=== PATIENT | male | born 1955 | race Caucasian/White ===

== ENCOUNTER 2018-10-01 14:42 | Emergency (ER) | payer BC ==
[~2018-10-01] VITALS: Ht 177.8 cm; Wt 68.2 kg
[2018-10-01 14:45] VITALS: Ht 177.8 cm; Wt 68.2 kg
[2018-10-01] MEDS ORDERED: ACID REFLUX MED (14:47)
[2018-10-01] MEDS ORDERED: BP MED (14:47)
[2018-10-01 16:34] VITALS: BP 136/72
== END 2018-10-01 16:35 | disposition home or self-care (01) ==
LOC: D.ER 14:42
DX: S16.1XXA Strain of muscle, fascia and tendon at neck level, initial encounter (principal); W18.30XA Fall on same level, unspecified, initial encounter; Y93.89 Activity, other specified; Y92.89 Other specified places as the place of occurrence of the external cause; S09.90XA Unspecified injury of head, initial encounter; S06.0X9A Concussion with loss of consciousness of unspecified duration, initial encounter

== ENCOUNTER 2019-08-31 01:25 | Emergency (ER) | payer BC ==
[~2019-08-31] VITALS: Ht 177.8 cm; Wt 68.0 kg
[~2019-08-31 01:25] MED LIST: ACID REFLUX MED; BP MED
[2019-08-31 01:31] VITALS: BP 160/105; Ht 177.8 cm; Wt 68.0 kg
[2019-08-31] MEDS ORDERED: FLOMAX0.4 MG PO (01:33)
[2019-08-31 01:52] LABS: BASOPHILS 0.6 % (0-2); EOSINOPHILS 0.9 % (0-7); HEMATOCRIT 46.8 % (42.0-54.0); HEMOGLOBIN 15.8 g/dL (13.5-17.5); IMMATURE GRANULOCYTES 0.2 % (0-5); MCH 31.4 pg (26.0-34.0); MCHC 33.8 g/dL (31.0-37.0); MEAN PLATELET VOLUME 9.7 fL (7.4-10.4); MONOCYTES 6.9 % (2-11); NEUTROPHILS 74.4 % (40-80); PLATELET COUNT 381 10x3/uL (130-400); RBC 5.03 10x6/uL (4.20-6.10); RDW 13.7 % (11.5-14.5)
[2019-08-31 01:56] LABS: ANION GAP 11.6 mmol/L (8-16); CALCIUM 8.9 mg/dL (8.5-10.1); CARBON DIOXIDE 29.5 mmol/L (21.0-32.0); CREATININE - SERUM 1.1 mg/dL (0.6-1.3); POTASSIUM - SERUM 4.1 mmol/L (3.5-5.1)
[2019-08-31 02:02] LABS: ALBUMIN 4.1 g/dL (3.4-5.0); BILIRUBIN - TOTAL 0.45 mg/dL (0.2-1.3); PROTEIN - SERUM 7.5 g/dL (6.4-8.2)
[2019-08-31 02:18] LABS: BILIRUBIN NEGATIVE (NEGATIVE); GLUCOSE NEGATIVE (NEGATIVE); KETONE NEGATIVE (NEGATIVE); NITRITE NEGATIVE (NEGATIVE); UROBILINOGEN NORMAL (NORMAL)
[2019-08-31 02:20] LABS: BACTERIA NONE SEEN /hpf (NEGATIVE); EPITHELIAL CELLS NSEEN /hpf (0-5); RED CELLS - URINE 0-5 /hpf (0-5); WHITE CELLS - URINE NSEEN /hpf (NEGATIVE)
== END 2019-09-01 02:50 | disposition home or self-care (01) ==
LOC: D.ER 01:25
PROVIDERS: Family Medicine
DX: R33.9 Retention of urine, unspecified (principal); C61 Malignant neoplasm of prostate; I10 Essential (primary) hypertension; K21.9 Gastro-esophageal reflux disease without esophagitis; R10.30 Lower abdominal pain, unspecified

== ENCOUNTER 2020-05-18 15:15 | Emergency (ER) | payer BC ==
[~2020-05-18] VITALS: Ht 177.8 cm; Wt 70.5 kg
[~2020-05-18 15:15] MED LIST changes: +FLOMAX0.4 MG PO
[2020-05-18 15:24] VITALS: Ht 177.8 cm; Wt 70.5 kg
[2020-05-18] MEDS ORDERED: COZAAR25 MG PO (15:28)
[2020-05-18 16:03] LABS: BASOPHILS 0.5 % (0-2); EOSINOPHILS 0.6 % (0-7); HEMATOCRIT 44.8 % (42.0-54.0); HEMOGLOBIN 15.1 g/dL (13.5-17.5); IMMATURE GRANULOCYTES 0.3 % (0-5); LYMPHOCYTE ABS# 1.01 10x3/uL (1.32-3.57); LYMPHOCYTES 12.9 % (15-50); MCH 30.9 pg (26.0-34.0); MCHC 33.7 g/dL (31.0-37.0); MCV 91.8 fL (80.0-100.0); MEAN PLATELET VOLUME 9.6 fL (7.4-10.4); MONOCYTES 8.4 % (2-11); NEUTROPHIL ABS# 6.05 10x3/uL (1.78-5.38); NEUTROPHILS 77.3 % (40-80); PLATELET COUNT 403 10x3/uL (130-400); RBC 4.88 10x6/uL (4.20-6.10); RDW 13.5 % (11.5-14.5); WBC 7.8 10x3/uL (4.8-10.8)
[2020-05-18 16:10] LABS: BILIRUBIN NEGATIVE (NEGATIVE); KETONE NEGATIVE (NEGATIVE); NITRITE NEGATIVE (NEGATIVE); UROBILINOGEN NORMAL mg/dL (< 2)
[2020-05-18 16:17] LABS: INR 1.18 (0.85-1.17); PROTIME 13.9 SECONDS (11.6-15.0)
[2020-05-18 16:18] LABS: APTT 31.5 SECONDS (22.8-39.4)
[2020-05-18 16:33] LABS: ANION GAP 8.1 mmol/L (8-16); CALCIUM 8.7 mg/dL (8.5-10.1); CARBON DIOXIDE 28.7 mmol/L (21.0-32.0); CREATININE - SERUM 1.1 mg/dL (0.6-1.3); POTASSIUM - SERUM 3.8 mmol/L (3.5-5.1)
[2020-05-18 16:39] LABS: ALBUMIN 4.1 g/dL (3.4-5.0); BILIRUBIN - TOTAL 0.45 mg/dL (0.2-1.3); PROTEIN - SERUM 7.2 g/dL (6.4-8.2)
[2020-05-18] MEDS ORDERED: OMEPRAZOLE40 MG PO (17:41)
[2020-05-18] MEDS ORDERED: MOBIC7.5 MG PO (17:41)
[2020-05-18 17:48] VITALS: BP 152/78
== END 2020-05-18 17:50 | disposition home or self-care (01) ==
LOC: D.ER 15:15
PROVIDERS: Family Medicine
DX: M25.562 Pain in left knee (principal); M25.511 Pain in right shoulder; M54.2 Cervicalgia; V89.2XXA Person injured in unspecified motor-vehicle accident, traffic, initial encounter; Y93.9 Activity, unspecified; Y92.9 Unspecified place or not applicable; I10 Essential (primary) hypertension; K21.9 Gastro-esophageal reflux disease without esophagitis